=== PATIENT | female | born 1940 | race Caucasian/White ===

== ENCOUNTER 2016-10-27 00:27 | Inpatient (IN) | payer MEDICARE, MEDICAID ==
[2016-10-27] VITALS (7 sets, daily range): BP systolic 103–138; BP diastolic 48–69
[~2016-10-27] VITALS: Ht 157.5 cm; Wt 48.1 kg
[~2016-10-27 00:27] MED LIST: ENAL5TAB92 PO; SIMV-8 PO
[2016-10-27] MEDS ORDERED: NITROGLYCERIN 0.4 MG SL TAB SL PRN (01:15)
[2016-10-27] MEDS ORDERED: MORPHINE SULF INJ 2 MG/ML SYRINGE 1ML IV PRN ×2 (01:15→03:45)
[2016-10-27] MEDS ORDERED: NITROGLYCERIN 0.4 MG SL TAB SL ONE (01:15)
[2016-10-27] MEDS: SODIUM CHLORIDE 0.9% 1,000 ML IV SCH ×3 (02:19→21:50)
[2016-10-27] MEDS ORDERED: ASCO500T11 PO (02:27)
[2016-10-27] MEDS ORDERED: ENOXAPARIN SOD 60 MG/0.6 ML SYRINGE SC SCH ×2 (03:00→10:00)
[2016-10-27 07:21] LABS: BUN/Creatinine Ratio 50.6; Potassium 4.1 mmol/L (3.5-5.1)
[2016-10-27 07:46] LABS: DEFINITIVE VIEW TRANSMISSION; Hematocrit 39.4 % (36.0-46.0); Hemoglobin 13.3 g/dL (12.2-16.2); Mean Corpuscular Hemoglobin 29.3 pg (28.0-32.0); Mean Corpuscular Hgb Conc. 33.7 g/dL (32.0-36.0); Mean Corpuscular Volume 87.1 fL (80.0-100.0); Mean Platelet Volume 11.1 fL (7.4-10.4); Platelet Count (auto) 215 10^3/uL (140-450); Red Cell Distribution Width 14.6 % (11.6-16.0); SUSPECT VIEW TRANSMISSION
[2016-10-27 07:54] LABS: Metamyelocytes % 0; Myelocytes % 0; Promyelocytes % 0; Reactive Lymphocytes 0; White Blood Cell 41.4 10^3/uL (4.4-10.8)
[2016-10-27] MEDS ORDERED: METOPROLOL SUCCINATE XL 50 MG TAB PO SCH (10:00)
[2016-10-27] MEDS ORDERED: LIDOCAINE 2%HCL (LOCAL ANESTH.) INJ 20ML MDV ONE (12:02)
[2016-10-27] MEDS ORDERED: IOHEXOL 350 MG/ML 100ML IJ ONE (12:04)
[2016-10-27] MEDS ORDERED: ALBUTEROL SULF 2.5 MG/0.5ML(0.5%) NEB SOLN NEB STA (13:08)
[2016-10-27] MEDS ORDERED: ALBUTEROL SULF 2.5 MG/0.5ML(0.5%) NEB SOLN ONE (13:11)
[2016-10-27 13:23] LABS: Burr Cells FEW; Platelet Estimate Adequate
[2016-10-27] MEDS ORDERED: ANGIOMAX 250 MG VIAL IV ONE (13:32)
[2016-10-27] MEDS ORDERED: fentaNYL CITRATE 100 MCG/2 ML VL ONE (13:32)
[2016-10-27] MEDS ORDERED: SODIUM CHL 0.9% 50 ML ONE (13:33)
[2016-10-27] MEDS ORDERED: EPTIFIBATIDE INJ (2MG/ML) 10ML VIAL IV ONE (13:33)
[2016-10-27] MEDS ORDERED: MIDAZOLAM HCL 1MG/1ML-2 ML VIAL ONE (13:33)
[2016-10-27] MEDS ORDERED: FUROSEMIDE 20 MG/2 ML VIAL ONE ×2 (14:12→14:38)
[2016-10-27] MEDS ORDERED: PIPERACILLIN-TAZO 4.5GM 100 ML IV ONE (14:30)
[2016-10-27] MEDS ORDERED: VANCOMYCIN PER PHARMACY 0 MG IV SCH (14:30)
[2016-10-27] MEDS ORDERED: VANCOMYCIN 500 MG in D5W 5% 100 ML IV ONE (14:30)
[2016-10-27] MEDS ORDERED: METOPROLOL SUCCINATE XL 50 MG TAB PO ONE (14:30)
[2016-10-27] MEDS ORDERED: VANCOMYCIN 750 MG in D5W 5% 250 ML IV ONE (17:00)
[2016-10-27] MEDS: MILK OF MAGNESIA 30ML SUSP PO PRN (17:43)
[2016-10-27] MEDS: VANCOMYCIN 750 MG in D5W 5% 250 ML IV SCH (17:43)
[2016-10-27] MEDS: PIPERACILLIN-TAZO 4.5GM 100 ML IV SCH (21:49)
[2016-10-27] MEDS: METOPROLOL SUCCINATE XL 50 MG TAB PO SCH (21:50)
[2016-10-28] MEDS: ALBUTEROL SULF 2.5 MG/0.5ML(0.5%) NEB SOLN NEB PRN ×3 (03:05→18:49)
[2016-10-28 05:00] VITALS: BP 97/60
[2016-10-28] MEDS: PIPERACILLIN-TAZO 4.5GM 100 ML IV SCH ×3 (05:33→21:59)
[2016-10-28 06:33] LABS: Albumin 2.6 g/dL (3.4-5.0); BUN/Creatinine Ratio 38.3; Bilirubin, Total 0.9 mg/dL (0.2-1.0); Calcium 8.4 mg/dL (8.5-10.1); Potassium 3.9 mmol/L (3.5-5.1); Total Protein 6.8 g/dL (6.4-8.2)
[2016-10-28] MEDS: SODIUM CHLORIDE 0.9% 1,000 ML IV SCH ×2 (07:15→17:39)
[2016-10-28 10:00] VITALS: BP 134/73
[2016-10-28] MEDS: METOPROLOL SUCCINATE XL 50 MG TAB PO SCH ×2 (10:01→21:59)
[2016-10-28 12:26] LABS: DEFINITIVE VIEW TRANSMISSION; Hematocrit 36.7 % (36.0-46.0); Hemoglobin 12.1 g/dL (12.2-16.2); Mean Corpuscular Hemoglobin 29.3 pg (28.0-32.0); Mean Corpuscular Hgb Conc. 33.1 g/dL (32.0-36.0); Mean Corpuscular Volume 88.4 fL (80.0-100.0); Mean Platelet Volume 10.7 fL (7.4-10.4); Platelet Count (auto) 207 10^3/uL (140-450); Red Cell Distribution Width 15.3 % (11.6-16.0); SUSPECT VIEW TRANSMISSION
[2016-10-28 12:32] LABS: Metamyelocytes % 0; Myelocytes % 0; Promyelocytes % 0; Reactive Lymphocytes 0
[2016-10-28 14:08] LABS: Platelet Estimate Adequate
[2016-10-28 14:09] LABS: Burr Cells FEW
[2016-10-28 14:35] VITALS: BP 102/53
[2016-10-28] MEDS: VANCOMYCIN 750 MG in D5W 5% 250 ML IV SCH (17:01)
[2016-10-28 17:25] VITALS: BP 107/51
[2016-10-28 22:00] VITALS: BP 101/52
[2016-10-29 04:56] VITALS: BP 97/67
[2016-10-29] MEDS: SODIUM CHLORIDE 0.9% 1,000 ML IV SCH ×2 (05:22→13:28)
[2016-10-29] MEDS: PIPERACILLIN-TAZO 4.5GM 100 ML IV SCH ×3 (05:23→21:30)
[2016-10-29] MEDS: ALBUTEROL SULF 2.5 MG/0.5ML(0.5%) NEB SOLN NEB PRN ×2 (06:03→19:38)
[2016-10-29 06:36] LABS: Albumin 2.3 g/dL (3.4-5.0); Bilirubin, Total 0.6 mg/dL (0.2-1.0); Calcium 8.1 mg/dL (8.5-10.1); Potassium 3.8 mmol/L (3.5-5.1); Total Protein 6.1 g/dL (6.4-8.2)
[2016-10-29 09:00] VITALS: BP 114/55
[2016-10-29] MEDS: METOPROLOL SUCCINATE XL 50 MG TAB PO SCH ×2 (09:15→21:31)
[2016-10-29 12:12] LABS: Hematocrit 31.6 % (36.0-46.0); Hemoglobin 10.5 g/dL (12.2-16.2); Mean Corpuscular Hemoglobin 29.4 pg (28.0-32.0); Mean Corpuscular Hgb Conc. 33.1 g/dL (32.0-36.0); Mean Corpuscular Volume 88.7 fL (80.0-100.0); Mean Platelet Volume 9.9 fL (7.4-10.4); Platelet Count (auto) 181 10^3/uL (140-450); Red Cell Distribution Width 14.8 % (11.6-16.0); SUSPECT VIEW TRANSMISSION; White Blood Cell 25.6 10^3/uL (4.4-10.8)
[2016-10-29 12:38] LABS: Promyelocytes % 0; Reactive Lymphocytes 0
[2016-10-29 12:55] VITALS: BP 112/53
[2016-10-29 13:23] LABS: Large Platelets FEW; Metamyelocytes % 1; Myelocytes % 1; Platelet Estimate Adequate
[2016-10-29 16:51] VITALS: BP 98/55
[2016-10-29] MEDS: VANCOMYCIN 750 MG in D5W 5% 250 ML IV SCH (16:55)
[2016-10-29] MEDS: MILK OF MAGNESIA 30ML SUSP PO PRN (18:45)
[2016-10-29 22:00] VITALS: BP 105/51
[2016-10-30] VITALS (7 sets, daily range): BP systolic 123–155; BP diastolic 56–73
[2016-10-30] MEDS: SODIUM CHLORIDE 0.9% 1,000 ML IV SCH ×2 (00:39→09:15)
[2016-10-30] MEDS: PIPERACILLIN-TAZO 4.5GM 100 ML IV SCH ×2 (05:32→14:01)
[2016-10-30 05:54] LABS: Albumin 2.2 g/dL (3.4-5.0); BUN/Creatinine Ratio 18.6; Bilirubin, Total 0.5 mg/dL (0.2-1.0); Calcium 8.2 mg/dL (8.5-10.1); Potassium 3.6 mmol/L (3.5-5.1); Total Protein 6.1 g/dL (6.4-8.2)
[2016-10-30] MEDS: METOPROLOL SUCCINATE XL 50 MG TAB PO SCH (09:18)
[2016-10-30] MEDS: VANCOMYCIN 750 MG in D5W 5% 250 ML IV SCH (17:21)
[2016-10-30] MEDS: PRO-STAT 64 30ML PO SCH (18:11)
[2016-10-30] MEDS: BOOST 8 ounces PO SCH (18:11)
[2016-10-31] MEDS: PIPERACILLIN-TAZO 4.5GM 100 ML IV SCH ×4 (00:02→22:39)
[2016-10-31] MEDS: METOPROLOL SUCCINATE XL 50 MG TAB PO SCH ×3 (00:03→22:00)
[2016-10-31] MEDS: SODIUM CHLORIDE 0.9% 1,000 ML IV SCH ×3 (00:09→15:15)
[2016-10-31 05:00] VITALS: BP 156/66
[2016-10-31] MEDS ORDERED: VANCOMYCIN 1GM/250ML D5W 0 ML IV ONE ×2 (05:31→17:28)
[2016-10-31] MEDS: VANCOMYCIN 500 MG in D5W 5% 100 ML IV SCH ×2 (06:06→17:00)
[2016-10-31 07:30] LABS: Hematocrit 32.9 % (36.0-46.0); Hemoglobin 10.9 g/dL (12.2-16.2); Mean Corpuscular Hemoglobin 28.8 pg (28.0-32.0); Mean Corpuscular Hgb Conc. 33.1 g/dL (32.0-36.0); Mean Corpuscular Volume 87.1 fL (80.0-100.0); Mean Platelet Volume 9.2 fL (7.4-10.4); Platelet Count (auto) 256 10^3/uL (140-450); Red Cell Distribution Width 14.6 % (11.6-16.0); SUSPECT VIEW TRANSMISSION; White Blood Cell 27.2 10^3/uL (4.4-10.8)
[2016-10-31 07:47] LABS: BUN/Creatinine Ratio 7.7; Calcium 8.6 mg/dL (8.5-10.1); Potassium 3.4 mmol/L (3.5-5.1)
[2016-10-31 07:50] LABS: Promyelocytes % 0; Reactive Lymphocytes 0
[2016-10-31] MEDS: PRO-STAT 64 30ML PO SCH ×2 (08:00→17:46)
[2016-10-31] MEDS: BOOST 8 ounces PO SCH ×3 (08:00→17:46)
[2016-10-31] MEDS: ALBUTEROL SULF 2.5 MG/0.5ML(0.5%) NEB SOLN NEB PRN (08:13)
[2016-10-31 08:21] LABS: Metamyelocytes % 5; Myelocytes % 4
[2016-10-31 08:23] LABS: Platelet Estimate Adequate; Stomatocytes Few
[2016-10-31 09:00] VITALS: BP 114/67
[2016-10-31 13:00] VITALS: BP 153/56
[2016-10-31] MEDS ORDERED: FUROSEMIDE 40 MG/4 ML VIAL IV ONE (15:45)
[2016-10-31 16:41] LABS: DEFINITIVE VIEW TRANSMISSION; Hematocrit 33.9 % (36.0-46.0); Hemoglobin 11.3 g/dL (12.2-16.2); Mean Corpuscular Hemoglobin 29.3 pg (28.0-32.0); Mean Corpuscular Hgb Conc. 33.4 g/dL (32.0-36.0); Mean Corpuscular Volume 87.7 fL (80.0-100.0); Mean Platelet Volume 9.5 fL (7.4-10.4); Platelet Count (auto) 259 10^3/uL (140-450); Red Cell Distribution Width 14.6 % (11.6-16.0); SUSPECT VIEW TRANSMISSION; White Blood Cell 28.2 10^3/uL (4.4-10.8)
[2016-10-31 16:51] LABS: Promyelocytes % 0
[2016-10-31 17:00] VITALS: BP 136/71
[2016-10-31 17:45] LABS: Metamyelocytes % 2
[2016-10-31 17:46] LABS: Myelocytes % 1; Platelet Estimate Adequate; Reactive Lymphocytes 1
[2016-10-31 21:30] VITALS: BP 96/60
[2016-11-01] VITALS (7 sets, daily range): BP systolic 91–155; BP diastolic 56–64
[2016-11-01] MEDS: SODIUM CHLORIDE 0.9% 1,000 ML IV SCH ×3 (01:15→21:15)
[2016-11-01] MEDS: VANCOMYCIN 500 MG in D5W 5% 100 ML IV SCH (05:00)
[2016-11-01] MEDS: PIPERACILLIN-TAZO 4.5GM 100 ML IV SCH ×3 (06:12→22:10)
[2016-11-01 06:24] LABS: DEFINITIVE VIEW TRANSMISSION; Hematocrit 36.5 % (36.0-46.0); Mean Corpuscular Hemoglobin 29.1 pg (28.0-32.0); Mean Corpuscular Hgb Conc. 32.9 g/dL (32.0-36.0); Mean Corpuscular Volume 88.6 fL (80.0-100.0); Mean Platelet Volume 9.6 fL (7.4-10.4); Platelet Count (auto) 292 10^3/uL (140-450); Red Cell Distribution Width 14.3 % (11.6-16.0); SUSPECT VIEW TRANSMISSION; White Blood Cell 28.6 10^3/uL (4.4-10.8)
[2016-11-01 06:42] LABS: Promyelocytes % 0; Reactive Lymphocytes 0
[2016-11-01 06:48] LABS: BUN/Creatinine Ratio 9.2; Calcium 8.7 mg/dL (8.5-10.1)
[2016-11-01 07:56] LABS: Metamyelocytes % 5; Myelocytes % 3; Platelet Estimate Adequate
[2016-11-01] MEDS: BOOST 8 ounces PO SCH ×3 (08:04→17:43)
[2016-11-01] MEDS: PRO-STAT 64 30ML PO SCH ×2 (08:04→17:43)
[2016-11-01 10:39] LABS: Potassium 3.1 mmol/L (3.5-5.1)
[2016-11-01 10:43] LABS: Albumin 2.3 g/dL (3.4-5.0); BUN/Creatinine Ratio 9.1; Calcium 8.9 mg/dL (8.5-10.1)
[2016-11-01 10:46] LABS: Bilirubin, Total 0.4 mg/dL (0.2-1.0); Total Protein 6.9 g/dL (6.4-8.2)
[2016-11-01] MEDS: METOPROLOL SUCCINATE XL 50 MG TAB PO SCH ×2 (11:01→22:10)
[2016-11-01] MEDS: VANCOMYCIN 750 MG in D5W 5% 250 ML IV SCH (11:01)
[2016-11-01 11:36] LABS: B-Type Natriuretic Peptide 1434.78 pg/mL (0-100); Temperature: 22.5 C (20.0-25.0)
[2016-11-02] MEDS: VANCOMYCIN 750 MG in D5W 5% 250 ML IV SCH (00:24)
[2016-11-02] MEDS: POTASSIUM CHL 20MEQ/100ML 100 ML IV SCH ×2 (02:27→06:21)
[2016-11-02 05:00] VITALS: BP 136/72
[2016-11-02] MEDS: PIPERACILLIN-TAZO 4.5GM 100 ML IV SCH ×2 (06:13→15:10)
[2016-11-02] MEDS: SODIUM CHLORIDE 0.9% 1,000 ML IV SCH ×2 (07:15→17:15)
[2016-11-02 08:00] VITALS: BP 113/61
[2016-11-02] MEDS: BOOST 8 ounces PO SCH ×3 (08:00→18:29)
[2016-11-02] MEDS: PRO-STAT 64 30ML PO SCH ×2 (08:00→18:29)
[2016-11-02 09:00] VITALS: BP 113/61
[2016-11-02] MEDS: METOPROLOL SUCCINATE XL 50 MG TAB PO SCH (10:15)
[2016-11-02] MEDS ORDERED: VANCOMYCIN 750 MG in D5W 5% 250 ML IV SCH (12:00)
[2016-11-02 13:00] VITALS: BP 145/72
[2016-11-02 17:00] VITALS: BP 145/72
== END 2016-11-02 19:45 | disposition home health service (06) | DRG 720 ==
LOC: TELE-CENTR 00:27
PROVIDERS: ADMIT Internal Medicine Cardiovascular Disease; ATTEND Internal Medicine Cardiovascular Disease
PROC: B2111ZZ Fluoroscopy of Multiple Coronary Arteries using Low Osmolar Contrast (ICD-10-PCS; principal; 2016-10-27)
PROC: B2151ZZ Fluoroscopy of Left Heart using Low Osmolar Contrast (ICD-10-PCS; 2016-10-27)
PROC: B41F1ZZ Fluoroscopy of Right Lower Extremity Arteries using Low Osmolar Contrast (ICD-10-PCS; 2016-10-27)
PROC: 4A023N7 Measurement of Cardiac Sampling and Pressure, Left Heart, Percutaneous Approach (ICD-10-PCS; 2016-10-27)
DX: A41.9 Sepsis, unspecified organism (principal); I21.4 Non-ST elevation (NSTEMI) myocardial infarction; J96.20 Acute and chronic respiratory failure, unspecified whether with hypoxia or hypercapnia; I11.0 Hypertensive heart disease with heart failure; E43 Unspecified severe protein-calorie malnutrition; J18.9 Pneumonia, unspecified organism; I95.9 Hypotension, unspecified; C91.10 Chronic lymphocytic leukemia of B-cell type not having achieved remission; I50.9 Heart failure, unspecified; M19.90 Unspecified osteoarthritis, unspecified site; I73.9 Peripheral vascular disease, unspecified; E78.5 Hyperlipidemia, unspecified; Z90.49 Acquired absence of other specified parts of digestive tract; Z80.8 Family history of malignant neoplasm of other organs or systems; Z86.73 Personal history of transient ischemic attack (TIA), and cerebral infarction without residual deficits; Z95.0 Presence of cardiac pacemaker; Z87.891 Personal history of nicotine dependence; Z90.710 Acquired absence of both cervix and uterus; Z68.1 Body mass index [BMI] 19.9 or less, adult
CPT/HCPCS: 36415; 71010; 71020; 80048; 80053; 80202; 83880; 84484; 85007; 85027; 87070; 87205; 93005; 94640; 99152; J2250; J2543; J3480; J7060

== ENCOUNTER → 2017-04-25 | Outpatient (CLI) | payer MEDICARE, MEDICAID ==
[~2017-04-25] MED LIST changes: +ASCO500T11 PO
== END | disposition home or self-care (01) ==
LOC: Rad HDHVI 09:54
PROVIDERS: ATTEND Internal Medicine Cardiovascular Disease
DX: I49.5 Sick sinus syndrome (principal)
CPT/HCPCS: 93306

== ENCOUNTER → 2017-07-12 | Outpatient (CLI) | payer MEDICARE, MEDICAID ==
[~2017-07-12] VITALS: Ht 160 cm; Wt 47.2 kg
[~2017-07-12] MED LIST changes: +ADENOSINE 40 MG in GIVE UN-DILUTED 0 ML IV ONE; +ADENOSINE 90 MG/30 ML INJ IV ONE
== END | disposition home or self-care (01) ==
LOC: Rad HDHVI 09:30
PROVIDERS: ATTEND Internal Medicine Cardiovascular Disease
DX: I10 Essential (primary) hypertension (principal); Z95.0 Presence of cardiac pacemaker; F17.210 Nicotine dependence, cigarettes, uncomplicated
CPT/HCPCS: 78452; 93005; 96374; 96375; A9500; J0153

== ENCOUNTER → 2017-07-16 | Outpatient (CLI) | payer MEDICARE, MEDICAID ==
[~2017-07-16] MED LIST changes: -ADENOSINE 40 MG in GIVE UN-DILUTED 0 ML IV ONE; -ADENOSINE 90 MG/30 ML INJ IV ONE; +IOHEXOL 350 MG/ML 100ML IJ ONE
[2017-07-16 08:40] VITALS: BP 153/51
[2017-07-16 09:05] VITALS: BP 153/51
== END | disposition home or self-care (01) ==
LOC: Rad HDHVI 08:29
PROVIDERS: ATTEND Internal Medicine Cardiovascular Disease
DX: J43.9 Emphysema, unspecified (principal); R63.4 Abnormal weight loss
CPT/HCPCS: 82565; 96374; G0463; Q9967; 71260

== ENCOUNTER → 2018-06-27 | Outpatient (CLI) | payer MEDICARE, MEDICAID ==
[~2018-06-27] MED LIST changes: +ENAL5TAB PO; -ENAL5TAB92 PO; -IOHEXOL 350 MG/ML 100ML IJ ONE
== END | disposition home or self-care (01) ==
LOC: Rad HDHVI 08:50
PROVIDERS: ATTEND Internal Medicine Cardiovascular Disease
DX: I05.0 Rheumatic mitral stenosis (principal); J44.9 Chronic obstructive pulmonary disease, unspecified
CPT/HCPCS: 93306

== ENCOUNTER → 2018-07-22 | Outpatient (CLI) | payer MEDICARE, MEDICAID ==
[~2018-07-22] VITALS: Ht 160 cm; Wt 44.9 kg
[~2018-07-22] MED LIST changes: +ADENOSINE 38 MG in GIVE UN-DILUTED 0 ML IV ONE; +ADENOSINE 90 MG/30 ML INJ IV ONE
== END | disposition home or self-care (01) ==
LOC: Rad HDHVI 13:40
PROVIDERS: ATTEND Internal Medicine Cardiovascular Disease
DX: J44.9 Chronic obstructive pulmonary disease, unspecified (principal); C92.10 Chronic myeloid leukemia, BCR/ABL-positive, not having achieved remission; R00.2 Palpitations; R64 Cachexia
CPT/HCPCS: 78452; 93005; 96374; 96375; A9500; J0153

== ENCOUNTER → 2018-12-12 | Outpatient (CLI) | payer MEDICARE, MEDICAID ==
[~2018-12-12] MED LIST changes: -ADENOSINE 38 MG in GIVE UN-DILUTED 0 ML IV ONE; -ADENOSINE 90 MG/30 ML INJ IV ONE
== END | disposition home or self-care (01) ==
LOC: Rad HDHVI 12:43
PROVIDERS: ATTEND Internal Medicine Cardiovascular Disease
DX: I51.7 Cardiomegaly (principal); R00.2 Palpitations
CPT/HCPCS: 93306

== ENCOUNTER → 2018-12-17 | Outpatient (CLI) | payer MEDICARE, MEDICAID ==
[~2018-12-17] MED LIST changes: +FUROSEMIDE 40 MG/4 ML VIAL ONE; +IOHEXOL 350 MG/ML 100ML IJ ONE; +POTASSIUM CHL 10 Meq TABLET PO ONE
[2018-12-17 08:50] VITALS: BP 107/56
--- NOTE | 2018-12-17 08:50 | NUR ---
IN FOR CT CHEST WITH IV CONTRAST FOR SOB AND COPD. SLIGHT DYSPNEA NOTED. PT REPORTS THAT SHE HAS IT CHRONICALLY.
--- NOTE | 2018-12-17 09:15 | NUR ---
IV insertion IV access obtained, via clean sterile technique by inserting 22 gauge catheter at after attempt(s)BY 2 RNS. IV secured properly. No trauma to site. Patient tolerated procedure well. STAT LABS DRAWN AND SENT.
[2018-12-17 10:31] LABS: Urine Blood Negative /uL (Negative); Urine Specific Gravity 1.013 (1.001-1.035)
[2018-12-17 10:34] LABS: Hematocrit 40.5 % (36.0-46.0); Hemoglobin 13.1 g/dL (12.2-16.2); Mean Corpuscular Hemoglobin 24.9 pg (28.0-32.0); Mean Corpuscular Hgb Conc. 32.4 g/dL (32.0-36.0); Platelet Count (auto) 511 10^3/uL (140-450); Red Blood Cells 5.26 10^6/uL (4.0-5.20); Red Cell Distribution Width 17.1 % (11.8-14.3); White Blood Cell 16.1 10^3/uL (4.4-10.8)
--- NOTE | 2018-12-17 10:35 | NUR ---
CLINICAL LAB STILL RUNNING RESULTS. WILL CALL WHEN VERIFIED. PT TO HAVE PACEMAKER INTERROGATED WITH
[2018-12-17 10:46] LABS: Albumin 3.7 g/dL (3.4-5.0); BUN/Creatinine Ratio 18.7; Bilirubin, Direct 0.2 mg/dL (0-0.2); Calcium 9.1 mg/dL (8.5-10.1); Magnesium 2.4 mg/dL (1.6-2.6); Potassium 4.5 mmol/L (3.5-5.1)
[2018-12-17 10:50] LABS: Bilirubin, Total 0.6 mg/dL (0.2-1.0); Total Protein 7.8 g/dL (6.4-8.2)
--- NOTE | 2018-12-17 11:08 | NUR ---
RETURNED FROM CT SCAN AND TOLERATED WELL. VS WNL. IV removal IV DC'd with sterile technique, catheter fully intact. Pressure dressing applied to site. Patient tolerated procedure well. Discharged with aftercare instructions per MD. NOTE:
[2018-12-17 11:15] VITALS: BP 131/51
--- NOTE | 2018-12-17 11:15 | NUR ---
CHF Discharge Instructions See e-MAR for any mediations given with this visit. Patient education given on disease process. Patient verbalized understanding. Previous labs reviewed. Patient discharged in stable condition with after care instructions .
[2018-12-17 12:07] LABS: Band Neutrophils % (manual) 0; Basophils % (manual) 0 (0.0-2.0); Blast Cells 0; Metamyelocytes % 0; Myelocytes % 0; Promyelocytes % 0; Reactive Lymphocytes 0
[2018-12-17 12:08] LABS: Eosinophils % (manual) 1 (0-7); Lymphocytes % (manual) 5 (10.0-50.0); Monocytes % (manual) 5 (0-12)
== END | disposition home or self-care (01) ==
LOC: Rad HDHVI 08:46
PROVIDERS: ATTEND Internal Medicine Cardiovascular Disease
DX: J43.9 Emphysema, unspecified (principal); I25.10 Atherosclerotic heart disease of native coronary artery without angina pectoris; E03.9 Hypothyroidism, unspecified; E55.9 Vitamin D deficiency, unspecified; N39.0 Urinary tract infection, site not specified; D51.9 Vitamin B12 deficiency anemia, unspecified; I27.21 Secondary pulmonary arterial hypertension; Z90.49 Acquired absence of other specified parts of digestive tract; Z79.899 Other long term (current) drug therapy
CPT/HCPCS: 36415; 71260; 80048; 80061; 80076; 81003; 82306; 82607; 83036; 83735; 85007; 85025; 85027; Q9967

== ENCOUNTER → 2019-01-01 | Outpatient (CLI) | payer MEDICARE, MEDICAID ==
[~2019-01-01] MED LIST changes: -FUROSEMIDE 40 MG/4 ML VIAL ONE; -IOHEXOL 350 MG/ML 100ML IJ ONE; -POTASSIUM CHL 10 Meq TABLET PO ONE
[2019-01-01 12:10] LABS: Hemoglobin 13.3 g/dL (12.2-16.2); Urine Blood Negative /uL (Negative); Urine Specific Gravity 1.019 (1.001-1.035)
[2019-01-01 12:11] LABS: Hematocrit 42.5 % (36.0-46.0); Mean Corpuscular Hemoglobin 24.1 pg (28.0-32.0); Mean Corpuscular Hgb Conc. 31.3 g/dL (32.0-36.0); Mean Corpuscular Volume 77.1 fL (80.0-100.0); Platelet Count (auto) 659 10^3/uL (140-450); Red Blood Cells 5.52 10^6/uL (4.0-5.20); Red Cell Distribution Width 19.6 % (11.8-14.3)
[2019-01-01 12:18] LABS: Potassium 4.4 mmol/L (3.5-5.1)
[2019-01-01 12:23] LABS: Free T4 (Free Thyroxine) 0.89 ng/dL (0.89-1.76)
[2019-01-01 12:30] LABS: Albumin 3.9 g/dL (3.4-5.0); BUN/Creatinine Ratio 17.4; Bilirubin, Total 0.4 mg/dL (0.2-1.0); Calcium 9.2 mg/dL (8.5-10.1); Total Protein 7.9 g/dL (6.4-8.2)
[2019-01-01 14:02] LABS: White Blood Cell 36.4 10^3/uL (4.4-10.8)
[2019-01-01 14:03] LABS: Band Neutrophils % (manual) 0; Basophils % (manual) 0 (0.0-2.0); Blast Cells 0; Eosinophils % (manual) 1 (0-7); Lymphocytes % (manual) 8 (10.0-50.0); Metamyelocytes % 0; Monocytes % (manual) 7 (0-12); Myelocytes % 0; Promyelocytes % 0; Reactive Lymphocytes 0
== END | disposition home or self-care (01) ==
LOC: LAB 08:46
PROVIDERS: ATTEND Internal Medicine Cardiovascular Disease
DX: N39.0 Urinary tract infection, site not specified (principal); E03.9 Hypothyroidism, unspecified; E55.9 Vitamin D deficiency, unspecified; D51.9 Vitamin B12 deficiency anemia, unspecified; Z79.899 Other long term (current) drug therapy
CPT/HCPCS: 36415; 80053; 80061; 81003; 82306; 82607; 83036; 84439; 84443; 85007; 85027

== ENCOUNTER → 2019-02-05 | Outpatient (CLI) | payer MEDICARE, MEDICAID ==
[~2019-02-05] VITALS: Ht 160 cm; Wt 40.8 kg
[~2019-02-05] MED LIST changes: +ADENOSINE 34 MG in GIVE UN-DILUTED 0 ML IV ONE; +ADENOSINE 90 MG/30 ML INJ IV ONE; +ALBUTEROL SULF 2.5 MG/0.5ML(0.5%) NEB SOLN ONE
== END | disposition home or self-care (01) ==
LOC: Rad HDHVI 07:50
PROVIDERS: ATTEND Internal Medicine Cardiovascular Disease
DX: I49.5 Sick sinus syndrome (principal); J44.9 Chronic obstructive pulmonary disease, unspecified; R06.02 Shortness of breath; I10 Essential (primary) hypertension; E78.5 Hyperlipidemia, unspecified; Z72.0 Tobacco use
CPT/HCPCS: 78452; 93005; 94640; 96374; 96375; A9500; J0153; J7611

== ENCOUNTER → 2019-04-29 | Outpatient (CLI) | payer MEDICARE, MEDICAID ==
[~2019-04-29] MED LIST changes: -ADENOSINE 34 MG in GIVE UN-DILUTED 0 ML IV ONE; -ADENOSINE 90 MG/30 ML INJ IV ONE; -ALBUTEROL SULF 2.5 MG/0.5ML(0.5%) NEB SOLN ONE; +IOHEXOL 350 MG/ML 100ML IJ ONE
--- NOTE | 2019-04-29 11:23 | NUR ---
IN TO CLINIC FOR CT CHEST WITH CONTRAST. IV insertion IV access obtained, via clean sterile technique by inserting 20 gauge catheter at after attempt(s). IV secured properly. No trauma to site. Patient tolerated procedure well.LABS DRAWN AND SENT FOR STAT RESULTS.
[2019-04-29 11:25] VITALS: BP 138/55
--- NOTE | 2019-04-29 12:55 | NUR ---
LABS RETURNED. WNL.
[2019-04-29 13:30] VITALS: BP 132/66
--- NOTE | 2019-04-29 13:30 | NUR ---
COMPLETED CT SCAN AND TOLERATED WELL. WITHOUT DISTRESS. IV SITE DCD AND SITE BENIGN POST USE. DISCHARGED TO SELF CARE IN NO DISTRESS OR DISCOMFORT.
== END | disposition home or self-care (01) ==
LOC: Rad HDHVI 11:18
PROVIDERS: ATTEND Internal Medicine Cardiovascular Disease
DX: J43.2 Centrilobular emphysema (principal); I25.10 Atherosclerotic heart disease of native coronary artery without angina pectoris; R94.4 Abnormal results of kidney function studies; R42 Dizziness and giddiness; R91.1 Solitary pulmonary nodule; I70.0 Atherosclerosis of aorta
CPT/HCPCS: 36415; 71260; 82565; G0463; Q9967

== ENCOUNTER → 2020-03-25 | Outpatient (CLI) | payer MEDICARE, MEDICAID ==
[~2020-03-25] MED LIST changes: -ENAL5TAB PO; +ENAL5TAB10 PO; -IOHEXOL 350 MG/ML 100ML IJ ONE
== END | disposition home or self-care (01) ==
LOC: Rad HDHVI 10:45
PROVIDERS: ATTEND Internal Medicine Cardiovascular Disease
DX: I35.0 Nonrheumatic aortic (valve) stenosis (principal); I51.7 Cardiomegaly; R06.02 Shortness of breath
CPT/HCPCS: 93306

== ENCOUNTER → 2020-04-01 | Outpatient (CLI) | payer MEDICARE, MEDICAID ==
[~2020-04-01] VITALS: Ht 160 cm; Wt 42.2 kg
[~2020-04-01] MED LIST changes: +ADENOSINE 35 MG in GIVE UN-DILUTED 0 ML IV ONE; +ADENOSINE 90 MG/30 ML INJ IV ONE
== END | disposition home or self-care (01) ==
LOC: Rad HDHVI 13:24
PROVIDERS: ATTEND Internal Medicine Cardiovascular Disease
DX: J43.9 Emphysema, unspecified (principal); R06.02 Shortness of breath; F17.210 Nicotine dependence, cigarettes, uncomplicated; Z95.0 Presence of cardiac pacemaker; Z82.49 Family history of ischemic heart disease and other diseases of the circulatory system
CPT/HCPCS: 78452; 93005; 96374; 96375; A9500; J0153

== ENCOUNTER → 2020-04-23 | Outpatient (CLI) | payer MEDICARE, MEDICAID ==
[~2020-04-23] MED LIST changes: -ADENOSINE 35 MG in GIVE UN-DILUTED 0 ML IV ONE; -ADENOSINE 90 MG/30 ML INJ IV ONE; +IOHEXOL 350 MG/ML 100ML IJ ONE; +READI-CAT 2 (BARIUM SULF)(VANILLA SMOOTHIE) 450ML ONE
[2020-04-23 09:42] VITALS: BP 114/56
--- NOTE | 2020-04-23 09:42 | NUR ---
CLINIC PT ARRIVED TO THE [facility] CLINIC FOR CT ABD/PEL WITH IV AND ORAL CONTRAST. A/OX4, AMBULATORY, BREATHING IS EVEN AND UNLABORED. PT C/O WT LOSS, CT R/O MASS
--- NOTE | 2020-04-23 09:52 | NUR ---
IV insertion IV access obtained, via clean sterile technique by inserting 22 gauge catheter at LAC after 1 attempt(s). IV secured properly. No trauma to site. Patient tolerated procedure well. CREAT 1.00 DRAWN ON 04/22/20 NOTE INSERTED BY ILANA ECHOLS
--- NOTE | 2020-04-23 10:29 | NUR ---
IV removal IV DC'd with sterile technique, catheter fully intact. Pressure dressing applied to site. Patient tolerated procedure well. Discharged with aftercare instructions per MD. NOTE: REMOVED BY ILANA ECHOLS
[2020-04-23 10:30] VITALS: BP 136/51
--- NOTE | 2020-04-23 10:30 | NUR ---
Discharge Instructions See e-MAR for any mediations given with this visit. Patient education given on disease process. Patient verbalized understanding. Previous labs reviewed. Patient discharged in stable condition with after care instructions and follow up appointment. PT TOLD TO INCREASE FLUIDS FOR THE NEXT 48 HOURS. PT VERBALIZED UNDERSTANDING.
== END | disposition home or self-care (01) ==
LOC: Rad HDHVI 09:21
PROVIDERS: ATTEND Internal Medicine Cardiovascular Disease
DX: K57.30 Diverticulosis of large intestine without perforation or abscess without bleeding (principal); J43.9 Emphysema, unspecified; I70.0 Atherosclerosis of aorta; M47.819 Spondylosis without myelopathy or radiculopathy, site unspecified; R63.4 Abnormal weight loss; I10 Essential (primary) hypertension; E78.5 Hyperlipidemia, unspecified; E03.9 Hypothyroidism, unspecified; I25.10 Atherosclerotic heart disease of native coronary artery without angina pectoris; R10.9 Unspecified abdominal pain; Z90.49 Acquired absence of other specified parts of digestive tract
CPT/HCPCS: 74177; G0463; Q9967

== ENCOUNTER → 2020-11-22 | Outpatient (CLI) | payer MEDICARE, MEDICAID ==
[~2020-11-22] MED LIST changes: -IOHEXOL 350 MG/ML 100ML IJ ONE; -READI-CAT 2 (BARIUM SULF)(VANILLA SMOOTHIE) 450ML ONE
== END | disposition home or self-care (01) ==
LOC: Rad HDHVI 14:25
PROVIDERS: ATTEND Internal Medicine Cardiovascular Disease
DX: R07.89 Other chest pain (principal); R06.02 Shortness of breath; R94.4 Abnormal results of kidney function studies
CPT/HCPCS: 36415; 82565; 93306

== ENCOUNTER → 2020-11-23 | Outpatient (CLI) | payer MEDICARE, MEDICAID ==
[~2020-11-23] MED LIST changes: +IOHEXOL 350 MG/ML 100ML IJ ONE
[2020-11-23 10:06] VITALS: BP 133/61
[2020-11-23 10:46] VITALS: BP 141/56
== END | disposition home or self-care (01) ==
LOC: Rad HDHVI 09:51
PROVIDERS: ATTEND Internal Medicine Cardiovascular Disease
DX: R91.1 Solitary pulmonary nodule (principal); J98.4 Other disorders of lung; I70.0 Atherosclerosis of aorta; I25.10 Atherosclerotic heart disease of native coronary artery without angina pectoris; M47.814 Spondylosis without myelopathy or radiculopathy, thoracic region; R64 Cachexia; R07.9 Chest pain, unspecified; Z95.0 Presence of cardiac pacemaker
CPT/HCPCS: 71260; G0463; Q9967

== ENCOUNTER → 2021-03-25 | Outpatient (CLI) | payer MEDICARE, MEDICAID ==
[~2021-03-25] MED LIST changes: -IOHEXOL 350 MG/ML 100ML IJ ONE; +LIDOCAINE 2%HCL (LOCAL ANESTH.) INJ 20ML MDV ONE
== END | disposition home or self-care (01) ==
LOC: CT 08:50
PROVIDERS: ATTEND Internal Medicine
DX: R91.8 Other nonspecific abnormal finding of lung field (principal); J43.9 Emphysema, unspecified; F17.200 Nicotine dependence, unspecified, uncomplicated; Z98.890 Other specified postprocedural states; Z79.899 Other long term (current) drug therapy; Z90.710 Acquired absence of both cervix and uterus; Z80.0 Family history of malignant neoplasm of digestive organs
CPT/HCPCS: 10022; 32408; 71045; 71250; 77012